=== PATIENT | female | born 1975 | race Hispanic/Latino ===

== ENCOUNTER 2018-09-29 08:35 | Emergency (ER) | payer SELFPAY ==
[~2018-09-29] VITALS: Ht 154.9 cm; Wt 132.9 kg
[2018-09-29] MEDS ORDERED: PRAVASTATIN SOD40 MG PO (08:50)
[2018-09-29] MEDS ORDERED: VASOTEC10 M1 PO (08:50)
[2018-09-29] MEDS ORDERED: GLIPIZIDE5 MG PO (08:50)
[2018-09-29] MEDS ORDERED: GLYBURIDE5 MG PO (08:50)
[2018-09-29] MEDS ORDERED: METFORMIN HCL500 MG PO (08:50)
[2018-09-29] MEDS ORDERED: MONTELUKAST SOD10 MG PO (08:50)
[2018-09-29] MEDS ORDERED: ACETAMINOPHEN/CODEINE 300MG - 30MG TAB PO ONE (09:00)
--- NOTE | 2018-09-29 09:41 | Diagnostic Imaging Report ---
EXAM: CHEST SINGLE (PORTABLE), AP Portable DATE: 09/29/2018 Time stamp on exam: 9:30 AM INDICATION: Cough COMPARISON: None FINDINGS: LINES/TUBES: None LUNGS: No consolidations or edema. PLEURA: No effusions or pneumothorax. HEART AND MEDIASTINUM: Normal size and contour. BONES AND SOFT TISSUES: Degenerative spurring of the spine. IMPRESSION: No acute thoracic abnormality. Signed by: Dr. Scott العراقي DO on 09/29/2018 9:38 AM
[2018-09-29] MEDS ORDERED: PREDNISONE20 MG PO (09:54)
== END 2018-09-29 11:05 | disposition home or self-care (01) ==
LOC: ER 08:35
DX: B34.9 Viral infection, unspecified (principal)
CPT/HCPCS: 71045; 99284

== ENCOUNTER 2024-10-17 13:57 | Emergency (ER) | payer OTHER ==
[~2024-10-17] VITALS: Ht 160 cm; Wt 155.6 kg
[~2024-10-17 13:57] MED LIST: ACETAMINOPHEN325 M1 PO; GLIPIZIDE5 MG PO; GLYBURIDE5 MG PO; KEFLEX125 MG/5 M PO; LISINOPRIL10 MG PO; METFORMIN HCL500 MG PO; METOCLOPRAMIDE10 MG PO; MONTELUKAST SOD10 MG PO; NOVOLOG100 UNIT/1 SC; ONDANSETRON ODT4 MG PO; PRAVASTATIN SOD40 MG PO; PREDNISONE20 MG PO; PROTONIX40 MG/ML PO; VASOTEC10 M1 PO
[2024-10-17 14:13] VITALS: PULSE 89; RESP 18; TEMP 97.9; O2SAT 99
== END 2024-10-17 14:46 | disposition home or self-care (01) ==
LOC: ER 14:03
DX: S42.292D Other displaced fracture of upper end of left humerus, subsequent encounter for fracture with routine healing (principal); W18.39XD Other fall on same level, subsequent encounter; I10 Essential (primary) hypertension; E11.9 Type 2 diabetes mellitus without complications
CPT/HCPCS: 99282